=== PATIENT | female | born 1995 | race Caucasian/White ===

== ENCOUNTER → 2016-10-22 | Outpatient (CLI) | payer MEDICAID, OTHER ==
[~2016-10-22] MED LIST: CALNTAB; CEPH500C3 PO; DARV PO; GLYB2.5T3 PO; IBUP-232 PO; SENN1TAB PO; Z.0.NO CURRENT MEDS
== END ==
LOC: CDED 14:24
PROVIDERS: ATTEND Obstetrics & Gynecology
DX: O24.419 Gestational diabetes mellitus in pregnancy, unspecified control (principal); Z71.89 Other specified counseling
CPT/HCPCS: 97802

== ENCOUNTER 2017-01-04 20:03 | Inpatient (IN) | payer MEDICAID ==
[~2017-01-04] VITALS: Ht 172.7 cm; Wt 87.5 kg
[~2017-01-04 20:03] MED LIST changes: -CALNTAB; -GLYB2.5T3 PO; -IBUP-232 PO; -SENN1TAB PO
[2017-01-04] MEDS ORDERED: LACTATED RINGER'S 1000 ML IV SCH (20:30)
[2017-01-04] MEDS ORDERED: ZOLPIDEM TARTRATE 5 MG TAB PO PRN (20:30)
[2017-01-04] MEDS ORDERED: LIDOCAINE HCL 1% 50 ML VIAL I-DERMAL PRN (20:30)
[2017-01-04] MEDS ORDERED: NS 500 ML BOLUS IV PRN (20:30)
[2017-01-04] MEDS ORDERED: NS 1000 ML OTHER PRN (20:30)
[2017-01-04] MEDS ORDERED: NS 1000 ML IV PRN (20:30)
[2017-01-04] MEDS ORDERED: DINOPROSTONE 10 MG INSERT-LEAVE FOR 12 HOURS VAGINAL ONE (20:30)
[2017-01-04] MEDS ORDERED: diphenhydrAMINE HCL 25 MG CAP PO PRN (20:30)
[2017-01-04] MEDS ORDERED: LACTATED RINGER'S 1000 ML BOLUS IV PRN (20:30)
[2017-01-04] MEDS ORDERED: CITRIC ACID-SODIUM CITRATE LIQ 30 ML UDC PO SCH (20:30)
[2017-01-04] MEDS ORDERED: LACTATED RINGER'S 1000 ML INJ 1,000 ML IV SCH (20:30)
[2017-01-04] MEDS ORDERED: OXYTOCIN 30 UNITS 500ML PREMIX IV ONE (20:30)
[2017-01-04] MEDS ORDERED: SODIUM CHLORIDE 0.9% FLUSH 10 ML FLUSH IV FLUSH PRN (20:30)
[2017-01-04] MEDS ORDERED: LIDOCAINE HCL 1% 50 ML VIAL INFIL PRN (20:30)
[2017-01-04] MEDS ORDERED: MINERAL OIL 10 ML VIAL TOPICAL PRN (20:30)
[2017-01-04 20:36] VITALS: BP 120/72; PULSE 92; RESP 18; TEMP 98
[2017-01-04] MEDS ORDERED: CALNTAB (20:45)
[2017-01-04] MEDS ORDERED: GLYB2.5T3 PO (20:47)
[2017-01-04 21:20] LABS: AUTOMATED NEUTROPHIL # 5.5 TH/MM3 (1.8-7.7); BASOPHIL % 0.4 % (0.0-2.0); EOSINOPHIL % 0.4 % (0.0-4.0); HEMATOCRIT 34.1 % (35.0-46.0); HEMO FLAGS DIFF FINAL; LYMPHOCYTE # 1.8 TH/MM3 (1.0-4.8); MEAN CORPUSCULAR HEMOGLOBIN 31.8 PG (27.0-34.0); MEAN CORPUSCULAR HGB CONC 34.9 % (32.0-36.0); MONO % 7.1 % (0.0-8.0); NEUT % 69.1 % (16.0-70.0); PLATELET COUNT 177 TH/MM3 (150-450); RED BLOOD COUNT 3.75 MIL/MM3 (4.00-5.30); RED CELL DISTRIBUTION WIDTH 12.9 % (11.6-17.2)
[2017-01-04 21:27] LABS: BACTERIA, URINE RARE /hpf; BLOOD, URINE NEG (NEG); COMMENT (UR) CULT NOT INDICATED; CULTURE IF INDICATED CULT NOT INDICATED; GLUCOSE,URINE NEG (NEG); HYALINE CAST, URINE 1 /lpf (RARE); KETONE, URINE 80 mg/dL (NEG); MUCUS URINE FEW /lpf (OCC); NITRITE,URINE NEG (NEG); SQUAMOUS EPITHELIAL CELL URINE 1 /hpf (0-5); URINE COLOR LIGHT-YELLOW (YELLW/STRAW)
[2017-01-04 21:39] LABS: ANION GAP 10 MEQ/L (5-15); AST (GOT) 14 U/L (15-37); BICARBONATE 21.7 MEQ/L (21.0-32.0); BLOOD UREA NITROGEN 12 MG/DL (7-18); CHLORIDE 105 MEQ/L (98-107); GLOMERULAR FILTRATION RATE 130 ML/MIN (>89); POTASSIUM 3.7 MEQ/L (3.5-5.1); SODIUM (NA) 137 MEQ/L (136-145)
[2017-01-04 21:42] LABS: ALKALINE PHOSPHATASE 73 U/L (45-117); ALT (GPT) 18 U/L (10-53); TOTAL BILIRUBIN ADULT 0.4 MG/DL (0.2-1.0)
[2017-01-04] MEDS ORDERED: glyBURIDE 2.5 MG TAB PO SCH (21:45)
[2017-01-04 23:30] VITALS: RESP 16; TEMP 98.9
[2017-01-04 23:31] VITALS: BP 102/64; PULSE 102
[2017-01-05] VITALS (40 sets, daily range): BP systolic 92–140; BP diastolic 48–86; PULSE 67–125; RESP 16–18; TEMP 98–98.9; O2SAT 100
[2017-01-05] MEDS: ONDANSETRON HCL 4 MG/2 ML VIAL IV PRN ×2 (00:20→04:32)
[2017-01-05] MEDS ORDERED: fentaNYL 2MCG-BUPIV 0.125% INJ 100 ML ONE (06:20)
--- NOTE | 2017-01-05 06:59 | HHI.HP ---
HPI Chief Complaint admit for term induction, gestational diabetic on oral hypoglycemic Date Seen: Jan 04, 2017 Time Seen: 22:30 Travel History International Travel<30 Days: No Contact w/Intl Traveler<30Days: No Known Affected Area: No History of Present Illness HPI 21 yo with EDC 01/08/17 presents to L&D for labor induction at term due to recent difficulty controlling fasting AM blood sugars despite oral glyburide 2.5mg at bedtime. Fasting sugars were well controlled until about 36 weeks when oral glyburide was added, this allowed control for 1 week but after that AM numbers continued to be around 110 - 125, if glyburide dose was increased pt had sweats, palpitations, nausea. Due to BS issues and term status, decision for labor induction. At time of admission pt denies LOF or VB, reports mild 1/ 10 pelvic pressure, endorses +FM. Para: 0 : 1 Last Menstrual Period: Apr 03, 2016 Miscarriage: 0 : 1 History Past Medical History Narrative Medical gestational diabetes Obstetric History Obstetric History G1 = EAB at 15 yo G2 = current, female fetus, EDC 01/08/17 Past Surgical History Narrative Surgical h/o knee surgery Family History Family History: Negative Social History Alcohol Use: No Tobacco Use: No Substance Abuse: No Allergies-Medications (Allergen,Severity, Reaction): Coded Allergies: No Known Allergies (Unverified , 01/04/17) Home Meds Reported Medications Glyburide 2.5 Mg Tab2.5 Mg PO DAILY #30 TAB Ref 0 Take with meals at the same time each day 01/04/17 Vitamin (Calna)1 Tab Tab 01/04/17 Discontinued Reported Medications Propoxyphene-N/Acetaminophen (Darvocet-N 100) Tab1 Tab PO [id number] #30 FOR PAIN 03/25/10 Cephalexin (Keflex)500 Mg Qil888 Mg PO BID #6 03/25/10 Review of Systems General / Constitutional: Weight Gain, No: Fever, Chills, Other Eyes: No: Diploplia, Blurred Vision, Visual changes, Pain, Photophobia HENT: No: Headaches, Vertigo, Lightheadedness Cardiovascular: No: Irregular Rhythm, Chest Pain or Discomfort, Palpitations, Tachycardia, Syncope, Varicosities, Edema, Cyanosis Respiratory: No: Cough, Short of Breath, Other Gastrointestinal: No: Nausea, Vomiting, Diarrhea Genitourinary: Pelvic Pain (pressure), No: Decreased Urinary Output, Oliguria Musculoskeletal: No: Limited ROM, Weakness, Cramping, Edema, Pain Skin: No Rash, No Itching, No Dryness, No Lumps, No Change in Pigmentation, No Change in Nails, No Alopecia, No Lesions Neurologic: No: Weakness, Dizziness, Syncope, Focal Abnormalities, Coordination Problem, Headache, Slurred Speech, Seizures Psychiatric: No: Depression, Suicidal Ideations, Homicidal Ideation Endocrine: No: Heat Intolerance, Cold Intolerance, Polydipsia, Polyuria, Other Physical Exam Vital Signs Date Time Temp Pulse Resp B/P Pulse Ox O2 Delivery O2 Flow Rate FiO2 01/05/17 04:30 98.9 01/05/17 04:18 96 120/71 01/05/17 04:18 18 01/05/17 04:15 107 100 01/05/17 02:44 98.6 18 01/05/17 02:44 104 92/48 01/05/17 02:40 95 01/05/17 02:35 93 01/05/17 02:30 98 01/05/17 02:26 18 01/04/17 23:31 102 102/64 01/04/17 23:30 98.9 01/04/17 23:30 16 01/04/17 20:36 98.0 92 18 120/72 Narrative GENERAL: Well-nourished, well-developed patient. SKIN: Warm and dry. HEAD: Normocephalic and atraumatic. EYES: No scleral icterus. No injection or drainage. ENT: No nasal drainage noted. Mucous membranes pink. Airway patent. NECK: Supple, trachea midline. No JVD. CARDIOVASCULAR: Regular rate and rhythm without murmurs, gallops, or rubs. RESPIRATORY: Breath sounds equal bilaterally. No accessory muscle use. BREASTS: deferred. ABDOMEN/GI: Abdomen soft, non-tender, bowel sounds present, no rebound, no guarding Gravid to [39.4] weeks size Fundal Height: [39] GENITOURINARY: SVE: /-2 on admit Presentation: [vtx] Membranes: [intact] Uterine Contractions: [irritability] FHT's: Category: [I] Baseline: [130s] Reactive: [y] Variability: [y] Decels: [n] EXTREMITIES: No cyanosis or edema. BACK: Nontender without obvious deformity. No CVA tenderness. NEUROLOGICAL: Awake and alert. Motor and sensory grossly within normal limits. Five out of 5 muscle strength in all muscle groups. Normal speech. Data Data Vital Signs Reviewed: Yes Orders Admit To Inpatient (01/04/17 ) Code Status (01/04/17 20:08) Vital Signs (Adult) .Per protocol (01/04/17 20:08) Activity Oob Ad Thu (01/04/17 20:08) ^ Heart (01/04/17 20:08) ^ Amnioinfusion (01/04/17 20:08) Urinary Catheter Management .ONCE (01/04/17 20:08) Complete Blood Count With Diff (01/04/17 20:08) Hold Clot (01/04/17 20:08) Abo/Rh Blood Type (01/04/17 20:08) Urinalysis - C+S If Indicated (01/04/17 20:08) Resp Oxygen Non Rebreathe Mask (01/04/17 ) ^ Epidural / Intrathecal Infus (01/04/17 20:08) Bedside Glucose Q4H (01/05/17 07:00) Comprehensive Metabolic Panel (01/04/17 20:08) Admit To Inpatient (01/04/17 ) Diet Regular Basic (01/04/17 Dinner) Activity Oob Ad Thu (01/04/17 20:08) ^ Labor Induction (01/04/17 20:08) ^ Saline Lock (01/04/17 20:08) ^ Vaginal Insert (01/04/17 20:08) ^ Vaginal Lavage (01/04/17 20:08) ^ Heart (01/04/17 20:08) Diet Regular Basic (01/04/17 Dinner) Lactated Ringer's 1000 Ml Inj (Lr 1000 M (01/04/17 20:30) Lactated Ringer's 1000 Ml Inj (Lr 1000 M (01/04/17 20:30) Sodium Chlorid 0.9% 500 Ml Inj (Ns 500 M (01/04/17 20:30) Sodium Chlor 0.9% 1000 Ml Inj (Ns 1000 M (01/04/17 20:30) Lidocaine 1% Inj (50 Ml) (Xylocaine 1% I (01/04/17 20:30) Citric Acid-Sodium Citrate Liq (Bicitra (01/04/17 20:30) Ondansetron Inj (Zofran Inj) (01/04/17 20:30) Fentanyl Inj (Fentanyl Inj) (01/04/17 20:30) Fentanyl Inj (Fentanyl Inj) (01/04/17 20:30) Lidocaine 1% Inj (50 Ml) (Xylocaine 1% I (01/04/17 20:30) Oxytocin 30 Units-500ml Premix (Pitocin (01/04/17 20:30) Light Mineral Oil (Muri-Lube Oil) (01/04/17 20:30) Zolpidem (Ambien) (01/04/17 20:30) Diphenhydramine (Benadryl) (01/04/17 20:30) Dinoprostone Vag Insert (Cervidil Vag In (01/04/17 20:30) Lactated Ringer's 1000 Ml Inj (Lr 1000 M (01/04/17 20:30) Sodium Chloride 0.9% Flush (Ns Flush) (01/04/17 20:30) Sodium Chlor 0.9% 1000 Ml Inj (Ns 1000 M (01/04/17 20:30) Glyburide (Diabeta) (01/04/17 21:45) Fentanyl 2mcg-Bupiv 0.125% Inj (Fentanyl (01/05/17 06:20) Labs Laboratory Tests Test 01/04/17 20:45 White Blood Count 8.0 Red Blood Count 3.75 Hemoglobin 11.9 Hematocrit 34.1 Mean Corpuscular Volume 91.0 Mean Corpuscular Hemoglobin 31.8 Mean Corpuscular Hemoglobin 34.9 Concent Red Cell Distribution Width 12.9 Platelet Count 177 Mean Platelet Volume 9.4 Neutrophils (%) (Auto) 69.1 Lymphocytes (%) (Auto) 23.0 Monocytes (%) (Auto) 7.1 Eosinophils (%) (Auto) 0.4 Basophils (%) (Auto) 0.4 Neutrophils # (Auto) 5.5 Lymphocytes # (Auto) 1.8 Monocytes # (Auto) 0.6 Eosinophils # (Auto) 0.0 Basophils # (Auto) 0.0 CBC Comment DIFF FINAL Differential Comment Urine Color LIGHT-YELLOW Urine Turbidity CLEAR Urine pH 6.0 Urine Specific [place] 1.007 Urine Protein NEG Urine Glucose (UA) NEG Urine Ketones 80 Urine Occult Blood NEG Urine Nitrite NEG Urine Bilirubin NEG Urine Urobilinogen LESS THAN 2.0 Urine Leukocyte Esterase TRACE Urine RBC LESS THAN 1 Urine WBC 2 Urine Squamous Epithelial 1 Cells Urine Bacteria RARE Urine Hyaline Casts 1 Urine Mucus FEW Microscopic Urinalysis Comment CULT NOT INDICATED Sodium Level 137 Potassium Level 3.7 Chloride Level 105 Carbon Dioxide Level 21.7 Anion Gap 10 Blood Urea Nitrogen 12 Creatinine 0.58 Estimat Glomerular Filtration 130 Rate Random Glucose 103 Calcium Level 8.7 Total Bilirubin 0.4 Aspartate Amino Transf 14 (AST/SGOT) Alanine Aminotransferase 18 (ALT/SGPT) Alkaline Phosphatase 73 Total Protein 6.5 Albumin 2.9 Blood Type O POSITIVE Blood Bank Comment Band and Hold Assessment/Plan Problem List: (1) Labor and delivery indication for care or intervention (2) Gestational diabetes mellitus treated with oral hypoglycemic therapy (3) Term Assessment and Plan 21 yo admit 01/04/17 for scheduled IOL at term due to gestational diabetes with recent poor control despite oral hypoglycemic therapy 1) IOL: start with cervidil overnight, will AROM as needed, use additional augmentation/pitocin as needed 2) GBS neg 3) gestational diabetes: pt was diet controlled until 36 wks when fasting BS started to increase to 110-125 range; was started on bedtime glyburide 2.5mg with good control for 1-2 weeks, then continued issues with fasting sugars and intolerance of any increase in oral hypoglycemic dose; testing reassuring weekly with NST/BPP in office 4) status: vtx, female, normal anatomy sono, reassuring testing since 36 wks Discharge Planning routine, 2-3d Carolyn Reyes MD Jan 05, 2017 06:59
[2017-01-05] MEDS ORDERED: OXYTOCIN 30 UNITS-500ML PREMIX 500 ML ONE (07:31)
--- NOTE | 2017-01-05 08:23 | PD.OB.DELI ---
Delivery Date: Jan 05, 2017 Anesthesia: Epidural Episiotomy: None Vaginal Delivery: Normal Presentation: Occiput anterior Nuchal Cord: None Delayed cord clamping (45 sec): Yes : Female One Minute : 8 Five Minute : 9 Weight: 3160 Infant Care: Suctioned (Bulb suctioned on maternal abdomen) Placenta: Spontaneous delivery Laceration: Vaginal laceration, 2 deg Repair: Chromic running Additional Information Called to standby for patient who entered active labor with cervidil. At my arrival to bedside, reassuring FHR was noted. Patient was unable to delay spontaneous maternal expulsive efforts and delivered within 2-3 ctx. The vertex delivered atraumatically with spontaneous maternal expulsive efforts followed by spontaneous and atraumatic delivery of anterior shoulder and remainder of while supporting perineum. The was vigorous at delivery and placed on the maternal abdomen; the cord was double clamped and cut after appropriate delay. Cord blood was obtained for nursery. The placenta delivered spontaneously and appeared to be intact. The vagina was inspected and a second degree vaginal and perineal laceration was noted, the anal sphincter and capsule were intact and not involved in the laceration. Approximately 8cc 1 % lidocaine given for additional anesthesia and the laceration was repaired with 2-0 and 3-0 chromic in the typical fashion with excellent cosmesis and hemostasis. The rectal exam was noted to be negative after repair. EBL 200cc. Apgars 8/9. Weight 6#15oz. Mother and doing well. Dr. Reyes arrived and assumed care for patient. Neeta Pedro MD Jan 05, 2017 08:23
[2017-01-05] MEDS ORDERED: SODIUM CHLORIDE 0.9% FLUSH 10 ML FLUSH IV FLUSH PRN (08:30)
[2017-01-05] MEDS ORDERED: oxyCODONE/ACETAMINOPHEN 5 MG/325 MG TAB PO PRN (08:30)
[2017-01-05] MEDS ORDERED: ACETAMINOPHEN 325 MG TAB PO PRN (08:30)
[2017-01-05] MEDS ORDERED: ALUMINUM/MAGNESIUM/SIMETH 30 ML CUP PO PRN (08:30)
[2017-01-05] MEDS ORDERED: WITCH HAZEL 50%/GLYCERIN 12.5% 40 PAD JAR TOPICAL PRN (08:30)
[2017-01-05] MEDS ORDERED: ZOLPIDEM TARTRATE 5 MG TAB PO PRN (08:30)
[2017-01-05] MEDS ORDERED: BENZOCAINE 20% TOPICAL SPRAY 60 ML CAN TOPICAL PRN (08:30)
[2017-01-05] MEDS ORDERED: SENN1TAB PO (08:32)
[2017-01-05] MEDS ORDERED: IBUP-232 PO (08:32)
--- NOTE | 2017-01-05 08:33 | HHI.DCPOC ---
Discharge Care Plan Diagnosis: (1) (spontaneous vaginal delivery) Your Health Problems Are: Vaginal delivery Report Symptoms to Your Doctor -Temperate above 100.5 degrees -Redness, of incision or excessive or foul smelling drainage -Unusual pain or calf pain -Increased vaginal bleeding -Painful or difficulty urinating -Feelings of extreme sadness or anxiety after 2 weeks Goals to Promote Your Health * To prevent worsening of your condition and complications * To maintain your health at the optimal level Directions to Meet Your Goals Take your medications as prescribed Follow your dietary instruction Follow activity as directed Ensure plenty of rest for recovery Drink fluids for hydration Keep your appointments as scheduled Take your immunizations and boosters as scheduled If your symptoms worsen call your PCP, if no PCP go to Urgent Care Center or Emergency Room Smoking is Dangerous to Your Health. Avoid second hand smoke Call the 24-hour crisis hotline for domestic abuse at Carolyn Reyes MD Jan 05, 2017 08:33
[2017-01-05] MEDS ORDERED: SODIUM CHLORIDE 0.9% FLUSH 10 ML FLUSH IV FLUSH SCH (09:00)
[2017-01-05] MEDS ORDERED: fentaNYL 2MCG-BUPIV 0.125% 100 ML EPIDURAL SCH (10:00)
[2017-01-05] MEDS ORDERED: DO NOT ADMINISTER ANTICOAGULANTS PRN (10:00)
[2017-01-05] MEDS ORDERED: ePHEDrine/NS 25 MG/5 ML SYR IV PRN (10:00)
[2017-01-05] MEDS ORDERED: NO SYSTEM NARCOTICS PRN (10:00)
[2017-01-05] MEDS: ONDANSETRON ODT 4 MG TAB PO PRN ×2 (11:39→20:06)
[2017-01-05] MEDS: oxyCODONE/ACETAMINOPHEN 5 MG/325 MG TAB PO PRN ×2 (11:40→20:06)
[2017-01-05] MEDS: IBUPROFEN 600 MG TAB PO PRN ×2 (11:40→20:07)
[2017-01-05] MEDS ORDERED: MEASLES, MUMPS, RUBELLA VACCINE 0.5 ML VIAL SQ ONE (16:00)
[2017-01-05] MEDS ORDERED: DIPHTH/TETANUS/ACEL PERTUSSIS (BOOSTER) 0.5 ML VIAL/PFS IM ONE (16:00)
[2017-01-06] MEDS: IBUPROFEN 600 MG TAB PO PRN ×3 (06:24→18:23)
[2017-01-06] MEDS: oxyCODONE/ACETAMINOPHEN 5 MG/325 MG TAB PO PRN ×4 (06:24→23:24)
[2017-01-06] MEDS: ONDANSETRON ODT 4 MG TAB PO PRN (06:24)
[2017-01-06] MEDS: DOCUSATE SODIUM 50 MG/SENNA 8.6 MG TAB PO PRN ×2 (06:24→18:30)
--- NOTE | 2017-01-06 08:33 | HHI.OB ---
Subjective Post Day: 1 Remarks doing well nuirsing no discomfort Objective Vitals/I&O Vital Signs Date Time Temp Pulse Resp B/P Pulse Ox O2 Delivery O2 Flow Rate FiO2 01/05/17 19:55 98.3 95 18 95/67 01/05/17 09:50 104/64 01/05/17 09:50 98.2 67 18 01/05/17 09:48 16 01/05/17 09:20 16 01/05/17 09:16 89 107/60 01/05/17 09:05 16 01/05/17 09:00 79 110/74 01/05/17 08:50 16 01/05/17 08:45 104 108/65 01/05/17 08:39 16 Objective Remarks GENERAL: Well-nourished, well-developed patient. CARDIOVASCULAR: Regular rate and rhythm without murmurs, gallops, or rubs. RESPIRATORY: Breath sounds equal bilaterally. No accessory muscle use. ABDOMEN/GI: Abdomen soft, non-tender. Fundus: Firm, non-tender at umbilicus. GENITOURINARY: Light to moderate bleeding. EXTREMITIES: No cyanosis or edema, non-tender, without signs of DVT. Medications and IVs Current Medications Medications (Trade) Dose Ordered Sig/Ziyad Route Start Time Stop Time Status Last Admin (Muri-Lube Oil) 10 ml UNSCH PRN TOPICAL 01/04/17 20:30 01/05/17 07:30 (NS Flush) 2 ml BID IV FLUSH 01/05/17 09:00 (NS Flush) 2 ml UNSCH PRN IV FLUSH 01/05/17 08:30 (Tylenol) 650 mg Q4H PRN PO 01/05/17 08:30 (Motrin) 600 mg Q6H PRN PO 01/05/17 08:30 01/06/17 06:24 (Percocet 5-325 Mg) 1 tab Q4H PRN PO 01/05/17 08:30 01/06/17 06:24 (Percocet 5-325 Mg) 2 tab Q4H PRN PO 01/05/17 08:30 (Americaine 20% Top Spr) 1 spray Q4H PRN TOPICAL 01/05/17 08:30 01/05/17 10:48 (Tucks Pads) 1 applic QID PRN TOPICAL 01/05/17 08:30 01/05/17 10:48 (Josefina-Colace) 2 tab Q12H PRN PO 01/05/17 08:30 01/06/17 06:24 (Ambien) 5 mg HS PRN PO 01/05/17 08:30 (Mag-Al Plus Susp Liq) 15 ml Q8H PRN PO 01/05/17 08:30 (Zofran Odt) 4 mg Q6H PRN PO 01/05/17 08:30 01/06/17 06:24 Miscellaneous Information No systemic narcotics to be given except... UNSCH PRN .XX 01/05/17 10:00 01/06/17 09:59 Miscellaneous Information DO NOT ADMINISTER ANY ANTICOAGUL... UNSCH PRN .XX 01/05/17 10:00 01/06/17 09:59 (fentaNYL 2MCG-BUPIV 0.125% INJ) 100 ml @ 0 mls/hr TITRATE EPIDURAL 01/05/17 10:00 (ePHEDrine/NS 25 MG/5 ML SYR) 10 mg UNSCH PRN IV 01/05/17 10:00 01/06/17 09:59 Assessment/Plan Problem List: (1) Labor and delivery indication for care or intervention (2) Gestational diabetes mellitus treated with oral hypoglycemic therapy (3) Term Assessment and Plan 21 yo admit 01/04/17 for scheduled IOL at term due to gestational diabetes with recent poor control despite oral hypoglycemic therapy 1) IOL: start with cervidil overnight, will AROM as needed, use additional augmentation/pitocin as needed 2) GBS neg 3) gestational diabetes: pt was diet controlled until 36 wks when fasting BS started to increase to 110-125 range; was started on bedtime glyburide 2.5mg with good control for 1-2 weeks, then continued issues with fasting sugars and intolerance of any increase in oral hypoglycemic dose; testing reassuring weekly with NST/BPP in office 4) status: vtx, female, normal anatomy sono, reassuring testing since 36 wks Discharge Planning routine home in Katharina Shepard MD Jan 06, 2017 08:33
[2017-01-06] MEDS ORDERED: DIPHTH/TETANUS/ACEL PERTUSSIS (BOOSTER) 0.5 ML VIAL/PFS IM ONE (16:00)
[2017-01-06 23:20] VITALS: BP 94/61; PULSE 79; RESP 18; TEMP 98.5
[2017-01-07] MEDS: IBUPROFEN 600 MG TAB PO PRN ×3 (00:44→13:45)
[2017-01-07] MEDS: DOCUSATE SODIUM 50 MG/SENNA 8.6 MG TAB PO PRN (07:46)
[2017-01-07] MEDS: oxyCODONE/ACETAMINOPHEN 5 MG/325 MG TAB PO PRN (07:49)
--- NOTE | 2017-01-07 11:54 | HHI.OB ---
Subjective Post Day: 2 Remarks PPD#2, Doing well, plan discharge today Objective Vitals/I&O Vital Signs Date Time Temp Pulse Resp B/P Pulse Ox O2 Delivery O2 Flow Rate FiO2 01/06/17 23:20 98.5 79 18 94/61 Objective Remarks GENERAL: Well-nourished, well-developed patient. CARDIOVASCULAR: Regular rate and rhythm without murmurs, gallops, or rubs. RESPIRATORY: Breath sounds equal bilaterally. No accessory muscle use. ABDOMEN/GI: Abdomen soft, non-tender. Fundus: Firm, non-tender at umbilicus. GENITOURINARY: Light to moderate bleeding. EXTREMITIES: No cyanosis or edema, non-tender, without signs of DVT. Medications and IVs Current Medications Medications (Trade) Dose Ordered Sig/Ziyad Route Start Time Stop Time Status Last Admin (Muri-Lube Oil) 10 ml UNSCH PRN TOPICAL 01/04/17 20:30 01/05/17 07:30 (NS Flush) 2 ml BID IV FLUSH 01/05/17 09:00 (NS Flush) 2 ml UNSCH PRN IV FLUSH 01/05/17 08:30 (Tylenol) 650 mg Q4H PRN PO 01/05/17 08:30 (Motrin) 600 mg Q6H PRN PO 01/05/17 08:30 01/07/17 07:46 (Percocet 5-325 Mg) 1 tab Q4H PRN PO 01/05/17 08:30 01/07/17 07:49 (Percocet 5-325 Mg) 2 tab Q4H PRN PO 01/05/17 08:30 (Americaine 20% Top Spr) 1 spray Q4H PRN TOPICAL 01/05/17 08:30 01/05/17 10:48 (Tucks Pads) 1 applic QID PRN TOPICAL 01/05/17 08:30 01/05/17 10:48 (Josefina-Colace) 2 tab Q12H PRN PO 01/05/17 08:30 01/07/17 07:46 (Ambien) 5 mg HS PRN PO 01/05/17 08:30 (Mag-Al Plus Susp Liq) 15 ml Q8H PRN PO 01/05/17 08:30 Ondansetron HCl 4 mg 4 mg Q6H PRN PO 01/05/17 08:30 01/06/17 06:24 (fentaNYL 2MCG-BUPIV 0.125% INJ) 100 ml @ 0 mls/hr TITRATE EPIDURAL 01/05/17 10:00 Assessment/Plan Problem List: (1) Labor and delivery indication for care or intervention (2) Gestational diabetes mellitus treated with oral hypoglycemic therapy (3) Term Assessment and Plan 21 yo admit 01/04/17 for scheduled IOL at term due to gestational diabetes with recent poor control despite oral hypoglycemic therapy 1) IOL: start with cervidil overnight, will AROM as needed, use additional augmentation/pitocin as needed 2) GBS neg 3) gestational diabetes: pt was diet controlled until 36 wks when fasting BS started to increase to 110-125 range; was started on bedtime glyburide 2.5mg with good control for 1-2 weeks, then continued issues with fasting sugars and intolerance of any increase in oral hypoglycemic dose; testing reassuring weekly with NST/BPP in office 4) status: vtx, female, normal anatomy sono, reassuring testing since 36 wks Discharge Planning routine home today Attending Attestation seen by Tim Graff MD Jan 07, 2017 11:54
== END 2017-01-07 14:52 | disposition home or self-care (01) | DRG 775 ==
LOC: H2EA 20:03 → H1EA 01-05 09:29
PROVIDERS: ADMIT Obstetrics & Gynecology; ATTEND Obstetrics & Gynecology
PROC: 10E0XZZ Delivery of Products of Conception, External Approach (ICD-10-PCS; principal; 2017-01-05)
PROC: 0KQM0ZZ Repair Perineum Muscle, Open Approach (ICD-10-PCS; 2017-01-05)
PROC: 3E0P7GC Introduction of Other Therapeutic Substance into Female Reproductive, Via Natural or Artificial Opening (ICD-10-PCS; 2017-01-05)
PROC: 00HU33Z Insertion of Infusion Device into Spinal Canal, Percutaneous Approach (ICD-10-PCS; 2017-01-05)
PROC: 3E0R3CZ (ICD-10-PCS; 2017-01-05)
DX: O24.425 Gestational diabetes mellitus in childbirth, controlled by oral hypoglycemic drugs (principal); O70.1 Second degree perineal laceration during delivery; Z37.0 Single live birth; Z3A.36 36 weeks gestation of pregnancy
CPT/HCPCS: 59025; 80053; 81001; 82948; 85025; 86900; 86901; 90715; J2405; J2590; J3010